=== PATIENT | female | born 2000 | race Two or more races ===

== ENCOUNTER 2022-01-04 16:01 | Emergency (ER) | payer SELFPAY ==
[~2022-01-04] VITALS: Ht 162.6 cm; Wt 52.2 kg
[2022-01-04 16:15] VITALS: BP 114/74
[2022-01-04] MEDS ORDERED: KETOROLAC TROMETH 30 MG/ML 1ML VIAL IV ONE (18:15)
[2022-01-04] MEDS ORDERED: METH500T22 PO (18:15)
[2022-01-04] MEDS ORDERED: IBUP600T27 PO (18:15)
== END 2022-01-04 18:23 | disposition home or self-care (01) ==
LOC: ER 16:01 → EDBD 16:01 → ER 18:18
DX: S16.1XXA Strain of muscle, fascia and tendon at neck level, initial encounter (principal); S39.012A Strain of muscle, fascia and tendon of lower back, initial encounter; S76.011A Strain of muscle, fascia and tendon of right hip, initial encounter; V43.62XA Car passenger injured in collision with other type car in traffic accident, initial encounter; Y93.89 Activity, other specified; Y92.410 Unspecified street and highway as the place of occurrence of the external cause; Y99.8 Other external cause status
CPT/HCPCS: 72040; 72100; 73502; 81025; 96374; 99284; J1885